=== PATIENT | male | born 1965 | race Caucasian/White ===

== ENCOUNTER 2022-11-14 13:57 | Emergency (ER) | payer OTHER ==
[2022-11-14] MEDS ORDERED: Acetaminophen 325 MG Tab PO ONE (14:41)
[2022-11-14] MEDS ORDERED: Lidocaine 1% 20 ML MDV INJECT ONE (15:22)
[2022-11-14] MEDS ORDERED: Bacitracin Oint 28.35 GM Tube TOP SCH (16:30)
[2022-11-14] MEDS ORDERED: Bacitracin Oint 1 GM U/D Packet TOP ONE (16:31)
== END 2022-11-14 16:51 | disposition home or self-care (01) ==
LOC: JP.ED 13:57
DX: S61.211A Laceration without foreign body of left index finger without damage to nail, initial encounter (principal); I10 Essential (primary) hypertension; K21.9 Gastro-esophageal reflux disease without esophagitis; Z79.899 Other long term (current) drug therapy; W45.8XXA Other foreign body or object entering through skin, initial encounter
CPT/HCPCS: 12002; 73140; 99282; 99283; A9270